=== PATIENT | female | born 1960 | race Two or more races ===

== ENCOUNTER → 2016-07-07 | Outpatient (CLI) | payer BC ==
[2016-07-07 08:30] LABS: Albumin 3.5 g/dL (3.4-5.0); BUN/Creatinine Ratio 13.7; Bilirubin, Total 0.7 mg/dL (0.2-1.0); Calcium 9.2 mg/dL (8.5-10.1); Total Protein 7.3 g/dL (6.4-8.2)
== END | disposition home or self-care (01) ==
LOC: LAB 06:54
PROVIDERS: ATTEND Family Medicine
DX: Z00.00 Encounter for general adult medical examination without abnormal findings (principal)
CPT/HCPCS: 36415; 80053; 82306; 83036

== ENCOUNTER → 2017-02-16 | Outpatient (CLI) | payer BC ==
[2017-02-16 07:50] LABS: Basophils # (auto) 0.1 uL; Basophils % (auto) 0.6 % (0.0-2.0); Eosinophils # (auto) 0.2 uL; Eosinophils % (auto) 1.3 % (0.0-7.0); Hematocrit 42.6 % (36.0-46.0); Lymphocytes # (auto) 2.9 uL; Lymphocytes % (auto) 24.5 % (10.0-50.0); Mean Corpuscular Hemoglobin 29.5 pg (28.0-32.0); Mean Corpuscular Hgb Conc. 32.8 g/dL (32.0-36.0); Mean Corpuscular Volume 90.1 fL (80.0-100.0); Mean Platelet Volume 8.9 fL (6.9-10.8); Monocytes # (auto) 0.6 uL; Monocytes % (auto) 5.1 % (0.0-12.0); Neutrophils # (auto) 8.1 uL; Neutrophils % (auto) 68.5 % (37.0-80.0); Platelet Count (auto) 297 10^3/uL (140-450); Red Cell Distribution Width 13.5 % (11.8-14.3); White Blood Cell 11.8 10^3/uL (4.4-10.8)
[2017-02-16 07:56] LABS: Urine Bilirubin Negative (Negative); Urine Blood Negative /uL (Negative); Urine Color Yellow (Yellow); Urine Glucose Normal (Normal); Urine Ketone Negative (Negative); Urine Mucus MANY (None Seen); Urine Nitrite Negative (Negative); Urine RBC 3 /hpf (0 - 4); Urine Squamous Epithelial Cell MANY /hpf (<5); Urine Urobilinogen Normal (Negative); Urine pH 5.5 (5.0-8.0)
[2017-02-16 08:20] LABS: Albumin 3.4 g/dL (3.4-5.0); BUN/Creatinine Ratio 12.5; Bilirubin, Total 0.6 mg/dL (0.2-1.0); Potassium 4.2 mmol/L (3.5-5.1); Total Protein 7.1 g/dL (6.4-8.2)
== END | disposition home or self-care (01) ==
LOC: LAB 06:29
PROVIDERS: ATTEND Family Medicine
DX: I10 Essential (primary) hypertension (principal); E11.9 Type 2 diabetes mellitus without complications; E78.5 Hyperlipidemia, unspecified
CPT/HCPCS: 36415; 80053; 80061; 81001; 85025

== ENCOUNTER 2021-06-11 09:00 | Emergency (ER) | payer BC, MEDICAID ==
[~2021-06-11] VITALS: Ht 165.1 cm; Wt 79.4 kg
[2021-06-11 10:15] LABS: Albumin 3.3 g/dL (3.4-5.0); Potassium 3.8 mmol/L (3.5-5.1)
[2021-06-11 10:16] LABS: Basophils # (auto) 0.1 10 ^3/uL (0-0.2); Basophils % (auto) 0.9 % (0.0-2.0); Eosinophils # (auto) 0.1 10 ^3/uL (0-0.8); Eosinophils % (auto) 0.7 % (0.0-7.0); Hematocrit 37.8 % (36.0-46.0); Hemoglobin 12.8 g/dL (12.2-16.2); Lymphocytes % (auto) 23.1 % (10.0-50.0); Mean Corpuscular Hemoglobin 29.1 pg (28.0-32.0); Mean Corpuscular Hgb Conc. 33.9 g/dL (32.0-36.0); Mean Corpuscular Volume 86.1 fL (80.0-100.0); Monocytes # (auto) 0.4 10 ^3/uL (0-1.3); Monocytes % (auto) 4.3 % (0.0-12.0); Neutrophils # (auto) 6.2 10 ^3/uL (1.6-8.6); Red Blood Cells 4.39 10^6/uL (4.0-5.20); Red Cell Distribution Width 13.6 % (11.8-14.3); White Blood Cell 8.7 10^3/uL (4.4-10.8)
[2021-06-11 10:19] LABS: BUN/Creatinine Ratio 11.6; Bilirubin, Total 0.5 mg/dL (0.2-1.0); Total Protein 7.2 g/dL (6.4-8.2)
[2021-06-11] MEDS: ONDANSETRON HCL 4 MG/2 ML VIAL IV ONE ×2 (10:59→11:13)
[2021-06-11] MEDS: HYDROmorphone HCL 2 MG/ML VL IV ONE ×2 (11:00→11:13)
[2021-06-11 12:01] LABS: Urine Bacteria FEW /hpf (None Seen); Urine Blood 1+ /uL (Negative); Urine Specific Gravity 1.007 (1.001-1.035); Urine WBC 80 /hpf (0 - 5)
[2021-06-11] MEDS ORDERED: NITR-87 PO (13:09)
[2021-06-11] MEDS ORDERED: cefTRIAXone 1GM/50ML D5W 50 ML IV ONE (13:15)
[2021-06-11 13:27] VITALS: BP 121/62
== END 2021-06-11 14:06 | disposition home or self-care (01) ==
LOC: EDBD 09:00 → ER 09:00
DX: M54.16 Radiculopathy, lumbar region (principal); N39.0 Urinary tract infection, site not specified; E11.9 Type 2 diabetes mellitus without complications
CPT/HCPCS: 36415; 72131; 72192; 80053; 81001; 84484; 85025; 93005; 96365; 96375; 99285; J0696; J1170; J2405

== ENCOUNTER 2024-12-07 17:06 | Emergency (ER) | payer MEDICAID ==
[~2024-12-07] VITALS: Ht 165.1 cm; Wt 85.2 kg
[~2024-12-07 17:06] MED LIST: NITR-87 PO
[2024-12-07 17:07] VITALS: BP 137/71; PULSE 89; RESP 18; TEMP 97.6; O2SAT 100
--- NOTE | 2024-12-07 18:39 | ED.PDOC ---
History of Present Illness(SKN HPI Comments This is a 64 year-old female who presents to the ED with a chief complaint of swelling and surrounding erythema to the R elbow s/p insect bite X3 days ago. Patient reports she was possibly bit by a spider, exact insect unknown. There is no drainage or bleeding identified at the site. Patient has no further complaints or modifying factors at this time. Patient otherwise denies N/V/D, fever, chills, dizziness, or pain. Chief Complaint: Abscess Primary Care Provider: YAMILETH History of Present Illness: Nurses Notes, Medications, Allergies Allergies: Coded Allergies: Ciprofloxacin (Verified Allergy, Severe, 12/07/24) Clindamycin (Verified Allergy, Severe, 12/07/24) Penicillins (Verified Allergy, Severe, 12/07/24) Home Meds Active Scripts Nitrofurantoin Monohydrate Mac (Macrobid) 100 Mg Cap, 100 MG PO BID for 7 Days, #14 CAP Prov:JESSIE REILLY MD 06/11/21 Information Source: Patient Mode of Arrival: Ambulatory Severity: Moderate Timing: Days Duration: Since onset Location: Other (R Elbow ) Mechanism: Spider Associated Signs and Symptoms: Redness, Swelling Past Medical History PAST MEDICAL HISTORY: DM, HTN Surgical History: Tubal Ligation IMPLEMENTATION SPECIALIST History: Denies all IMPLEMENTATION SPECIALIST Hx Family History Family History: Reviewed,noncontributory to illness Social History Smoker: Non-Smoker Alcohol: Denies ETOH Use Drugs: Denies Drug Use Lives In: Home Constitutional: denies: chills, diaphoresis, fatigue, fever, malaise, sweats, weakness, others EENTM: denies: blurred vision, double vision, ear bleeding, ear discharge, ear drainage, ear pain, ear ringing, eye pain, eye redness, hearing loss, mouth pain, mouth swelling, nasal discharge, nose bleeding, nose congestion, nose pain, photophobia, tearing, throat pain, throat swelling, voice changes, others Respiratory: denies: cough, hemoptysis, orthopnea, SOB at rest, shortness of breath, SOB with excertion, stridor, wheezing, others Cardiovascular: denies: chest pain, dizzy spells, diaphoresis, Dyspnea on exertion, edema, irregular heart beat, left arm pain, lightheadedness, palpitations, PND, syncope, others Gastrointestinal: denies: abdomen distended, abdominal pain, blood streaked bowels, constipated, diarrhea, dysphagia, difficulty swallowing, hematemesis, melena, nausea, poor appetite, poor fluid intake, rectal bleeding, rectal pain, vomiting, others Genitourinary: denies: abnormal vagina bleeding, burning, dyspareunia, dysuria, flank pain, frequency, hematuria, incontinence, pain, , vagina discharge, urgency, others Neurological: denies: dizziness, fainting, headache, left sided numbness, left sided weakness, numbness, paresthesia, pre-existing deficit, right sided numbness, right sided weakness, seizure, speech problems, tingling, tremors, weakness, others Musculoskeletal: denies: back pain, gout, joint pain, joint swelling, muscle pain, muscle stiffness, neck pain, others Integumetry: reports: others (Swelling and surrounding erythema to the R elbow s/p insect bite ); denies: bruises, change in color, change in hair/nails, dryness, laceration, lesions, lumps, rash, wounds Allergic/Immunocompromised: denies: Difficulty Healing, Frequent Infections, Hives, Itching, others Hematologic/Lymphatic: denies: anemia, blood clots, easy bleeding, easy bruising, swollen glands, others Endocrine: denies: excessive hunger, excessive sweating, excessive thirst, excessive urination, flushing, intolerance to cold, intolerance to heat, unexplained weight gain, unexplained weight loss, others Psychiatric: denies: anxiety, bipolar disorder, depression, hopeless, panic disorder, schizophrenia, sleepless, suicidal, others All Other Systems: Reviewed and Negative Was a procedure done? Was a procedure done?: No Differential Diagnosis (INTG) Differential Diagnosis: Cellulitis, Insect Envenomation, Puncture Wound X-Ray, Labs, Meds, VS Vital Signs Date Time Temp Pulse Resp B/P (MAP) Pulse Ox O2 Delivery O2 Flow Rate FiO2 12/07/24 17:07 97.6 89 18 137/71 100 97.6 Time of 1ST Reevaluation: 19:19 Reevaluation 1ST: Unchanged Patient Education/Counseling: Diagnosis, Treatment Family Education/Counseling: No Family Present SEPSIS Sepsis Screen Date sepsis recognized/suspect: Dec 07, 2024 Time Sepsis recognized/suspect: 1709 Recent Procedure: No On Antibiotic Therapy: No Respiratory Rate >20: No Heart Rate >90: No Temp<36 C (96.8 F) or >38.3 C: No SBP <90 or MAP <65 mmHG: No New Acute Mental Status Change: No Is the patient on CPAP, BIPAP,: No Vital Signs Date Time Temp Pulse Resp B/P (MAP) Pulse Ox O2 Delivery O2 Flow Rate FiO2 12/07/24 17:07 97.6 89 18 137/71 100 97.6 Critical Care Note Critical Care Time?: No Stability Stability form required: No Heart Score Heart Score: Heart Score Response (Comments) Value History N/A 0 EKG N/A 0 Age N/A 0 Risk Factors N/A 0 Troponin N/A 0 Total 0 I personally scribed for ER ([email or web address]) on 12/07/24 at 18:39. Electronically submitted by Jeanette Arango ([employer]). I personally scribed for ER ([email or web address]) on 12/07/24 at 19:48. Electronically submitted by Jeanette HOPSONallyveMary). ER Dec 07, 2024 18:39
== END 2024-12-07 19:47 | disposition left against medical advice (07) ==
LOC: ER 17:06
DX: M79.89 Other specified soft tissue disorders (principal)